=== PATIENT | female | born 1970 | race Two or more races ===

== ENCOUNTER → 2025-03-02 | Outpatient (CLI) | payer MEDICAID, SELFPAY ==
--- NOTE | 2025-03-02 09:30 | XR_ITS ---
Examination: Esophagram standard Fluoroscopy 22 spot fluoroscopic films of the esophagus Upright PA chest single view Upright soft tissue lateral neck single view Date and time: March 02, 2025 1018 hours INDICATIONS: Throat pain with eating beginning 3 months ago. FINDINGS: Primary peristaltic esophageal waves noted No constricting esophageal lesion. Moderate intermittent gastroesophageal reflux No stricture gastroesophageal junction No esophageal ulceration Small sliding esophageal hernia Fluoroscopy 0.07 minutes Upright PA chest normal heart size no mediastinal lymphadenopathy Upright soft tissue lateral neck single view normal epiglottis IMPRESSION: Moderate intermittent gastroesophageal reflux No constricting esophageal lesion No stricture at the gastroesophageal junction
== END | disposition home or self-care (01) ==
LOC: CDIM 09:14
PROVIDERS: PCP Nurse Practitioner Family; Referring Provider Nurse Practitioner Family; Visit Provider Nurse Practitioner Family
DX: K21.9 Gastro-esophageal reflux disease without esophagitis (principal)
CPT/HCPCS: 74220; A4699